=== PATIENT | male | born 1975 | race African-American/Black ===

== ENCOUNTER 2017-02-17 15:55 | Emergency (ER) | payer MEDICAID ==
[~2017-02-17] VITALS: Ht 185.4 cm; Wt 99.8 kg
[2017-02-17 16:26] VITALS: BP 146/97
== END 2017-02-17 17:55 | disposition home or self-care (01) ==
LOC: ER 15:55
DX: S16.1XXA Strain of muscle, fascia and tendon at neck level, initial encounter (principal); S39.012A Strain of muscle, fascia and tendon of lower back, initial encounter; V43.62XA Car passenger injured in collision with other type car in traffic accident, initial encounter; Y93.89 Activity, other specified; Y92.89 Other specified places as the place of occurrence of the external cause; Y99.8 Other external cause status